=== PATIENT | female | born 1965 | race Caucasian/White ===

== ENCOUNTER → 2022-03-13 11:24 | Outpatient (BNVA) | payer MEDICAID, SELFPAY | PROVIDERS: PCP Physician Assistant; Referring Provider Nurse Practitioner Family; Visit Provider Internal Medicine Rheumatology | DX: M19.90 Unspecified osteoarthritis, unspecified site (principal); R76.8 Other specified abnormal immunological findings in serum; R60.0 Localized edema; Z79.899 Other long term (current) drug therapy | CPT/HCPCS: 36415; 72170; 73562; 85651; 86140; 86160; 86162; 86200; 86235; 86255; 86376 ==

== ENCOUNTER 2022-05-24 13:50 | Outpatient (CLI) | payer MEDICAID, SELFPAY ==
--- NOTE | 2022-05-24 14:15 | US_ITS ---
WS: [id number] INDICATION: Lupus TECHNIQUE: Ultrasound bilateral neck parotid glands. FINDINGS: Ultrasound parotid glands bilaterally. Slightly heterogeneous parotid glands bilaterally. A few incidental intraparotid lymph nodes. No evidence of cystic or solid lesion. No cervical lymphade nopathy. US/US soft tissue head neck [id number] IMPRESSION: Slightly heterogeneous parotid echotexture. No visualized suspiciou s cystic or solid lesions.
== END 2022-05-24 13:51 | disposition home or self-care (01) ==
PROVIDERS: PCP Physician Assistant; Visit Provider Internal Medicine Rheumatology
DX: R60.0 Localized edema (principal); R76.8 Other specified abnormal immunological findings in serum
CPT/HCPCS: 76536

== ENCOUNTER → 2024-06-21 12:59 | Outpatient (BNVA) | payer MEDICAID, SELFPAY | PROVIDERS: PCP Physician Assistant; Visit Provider Internal Medicine Rheumatology | DX: Z79.899 Other long term (current) drug therapy (principal) | CPT/HCPCS: 36415; 80076; 82565; 82657; 85025; 85651; 86140 ==